=== PATIENT | male | born 1950 | race Caucasian/White ===

== ENCOUNTER 2018-10-16 09:33 | Day surgery (SDC) | payer OTHER, SELFPAY ==
[2018-10-16] MEDS: PROPARACAINE 0.5% OPHTH SOL 2 DROPS EYE-OP (09:54)
[2018-10-16 09:57] VITALS: BP 146/81; PULSE 59; RESP 15; TEMP 36.6; O2SAT 94; BMI 30.7
[2018-10-16] MEDS: CATARACT EYE COMPOUND (10 DROPS/SYRINGE) 3 DROPS EYE-OP (10:09)
--- NOTE | 2018-10-16 11:00 | PM.PREOP ---
Pre-operative Note Interval Note History & Physical reviewed/Exam performed by Physician: No Changes to H&P: No
--- NOTE | 2018-10-16 11:01 | P.OP_ITS ---
Operative Date/Time/Diagnoses Pre-op diagnosis: Nuclear Cataract Left eye Post-op diagnosis: same Procedure & Clinicians Surgeon: Cory Ortiz Anesthesia Type: MAC +/- and Sedation Operative Notes Procedure in detail: Patient brought to the operating suite. Tetracaine drops placed in the left eye. Patient was prepped and draped in sterile manner. Wire lid speculum was placed in the eye. Betadine drops were placed on the eye. This was irrigated. Lidocaine jelly was placed on the eye. A paracentesis port was created with a side-port blade. 0.1 mL 1% preservative free lidocaine was injected into the anterior chamber. The anterior chamber was deepened with viscoelastic. 2.6 mm keratome was used to create a temporal clear corneal incision. Cystotome and Utrata forceps were used to create continuous tear capsulorrhexis. Balanced salt solution was used to hydro dissect the nucleus. The phacoemulsification handpiece was inserted and the nucleus was removed using the stop and chop technique. The irrigation aspiration handpiece was inserted and the remaining cortex was removed. Anterior chamber was deepened with viscoelastic. An Kauffman ZCB00 intraocular lens with a power of 22.0 was injected into the capsular bag. Irrigation aspiration handpiece was inserted and the remaining viscoelastic was removed. Incision was hydrated with balanced salt solution and found to be leak free with pressure with Weck- Stephie sponges. 0.1 mL Vigamox injected anterior chamber. 0.3 mL Kenalog 10 mg was injected subconjunctivally. Lid speculum was removed. The patient left the operating room in excellent condition. Complications: none Condition: stable Disposition: same day surgery
[2018-10-16] MEDS: PHENYLEPHRINE/LIDOCAINE VIAL (OR) 0.2 ML EYE-OP (11:09)
[2018-10-16] MEDS: MOXIFLOXACIN OPHTH DROPS 3 ML BOTTLE 2 DROPS INJ (11:09)
[2018-10-16] MEDS: TRIAMCINOLONE 50 MG/5 ML VIAL INJ (11:09)
[2018-10-16] MEDS: TETRACAINE 0.5% OPHTH DROPS 4 ML 2 DROPS EYE-OP (11:10)
[2018-10-16] MEDS: LIDOCAINE JELLY 2% 5 ML 1 APPLIC TOP (11:10)
[2018-10-16] MEDS: BALANCED SALT IRRIG SOLN NO.2 500 ML, EPINEPHrine 1 MG IRR (11:10)
[2018-10-16] MEDS: CHONDROIDTIN/SOD HYALURONATE 1.05 ML SYRINGE INTRAOCULA (11:10)
[2018-10-16 11:30] VITALS: BP 139/76; PULSE 63; RESP 24; TEMP 36.6; O2SAT 97
== END 2018-10-16 11:41 ==
LOC: OR 09:35
PROVIDERS: PCP Family Medicine; Visit Provider Ophthalmology
DX: H25.12 Age-related nuclear cataract, left eye (principal); I10 Essential (primary) hypertension
CPT/HCPCS: J0171; J2250; J3010; J3301

== ENCOUNTER 2018-10-30 09:16 | Day surgery (SDC) | payer OTHER, SELFPAY ==
[2018-10-30 09:42] VITALS: BP 142/81; PULSE 78; RESP 15; TEMP 36.6; O2SAT 94; BMI 31.6
[2018-10-30] MEDS: PROPARACAINE 0.5% OPHTH SOL 2 DROPS EYE-OP (09:47)
[2018-10-30] MEDS: CATARACT EYE COMPOUND (10 DROPS/SYRINGE) 3 DROPS EYE-OP (09:49)
--- NOTE | 2018-10-30 11:17 | PM.PREOP ---
Pre-operative Note Interval Note History & Physical reviewed/Exam performed by Physician: No Changes to H&P: No
--- NOTE | 2018-10-30 11:18 | P.OP_ITS ---
Operative Date/Time/Diagnoses Pre-op diagnosis: Nuclear cataract right eye Procedure & Clinicians Procedure: Cataract Surgery Same procedure as scheduled: Yes Surgeon: Cory Ortiz Anesthesia Type: MAC +/- and Sedation Operative Notes Procedure in detail: Patient brought to the operating suite. Tetracaine drops placed in the right eye. Patient was prepped and draped in sterile manner. Wire lid speculum was placed in the eye. Betadine drops were placed on the eye. This was irrigated. Lidocaine jelly was placed on the eye. A paracentesis port was created with a side-port blade. 0.1 mL 1% preservative free lidocaine was injected into the anterior chamber. The anterior chamber was deepened with viscoelastic. 2.6 mm keratome was used to create a temporal clear corneal incision. Cystotome and Utrata forceps were used to create continuous tear capsulorrhexis. Balanced salt solution was used to hydro dissect the nucleus. The phacoemulsification handpiece was inserted and the nucleus was removed using the stop and chop technique. The irrigation aspiration handpiece was inserted and the remaining cortex was removed. Anterior chamber was deepened with viscoelastic. An Kauffman ZCB00 intraocular lens with a power of 22.5 was injected into the capsular bag. Irrigation aspiration handpiece was inserted and the remaining viscoelastic was removed. Incision was hydrated with balanced salt solution and found to be leak free with pressure with Weck- Stephie sponges. 0.1 mL Vigamox injected anterior chamber. 0.3 mL Kenalog 10 mg was injected subconjunctivally. Lid speculum was removed. The patient left the operating room in excellent condition. Complications: none Condition: stable Disposition: same day surgery
--- NOTE | 2018-10-30 11:21 | SUR.OPER ---
Supine on eye stretcher, head on extension cradle secured with tape. Arms tucked at sides with blanket. Pillow under knees.
[2018-10-30] MEDS: PHENYLEPHRINE/LIDOCAINE VIAL (OR) 0.2 ML EYE-OP (11:34)
[2018-10-30] MEDS: TRIAMCINOLONE 50 MG/5 ML VIAL INJ (11:35)
[2018-10-30] MEDS: CHONDROIDTIN/SOD HYALURONATE 1.05 ML SYRINGE INTRAOCULA (11:35)
[2018-10-30] MEDS: MOXIFLOXACIN OPHTH DROPS 3 ML BOTTLE 2 DROPS INJ (11:35)
[2018-10-30] MEDS: LIDOCAINE JELLY 2% 5 ML 1 APPLIC TOP (11:36)
[2018-10-30] MEDS: BALANCED SALT IRRIG SOLN NO.2 500 ML, EPINEPHrine 1 MG IRR (11:36)
[2018-10-30] MEDS: TETRACAINE 0.5% OPHTH DROPS 4 ML 2 DROPS EYE-OP (11:37)
[2018-10-30 11:49] VITALS: BP 131/85; PULSE 70; RESP 15; TEMP 36.6; O2SAT 95
== END 2018-10-30 12:02 | disposition home or self-care (01) ==
LOC: OR 09:20
PROVIDERS: PCP Family Medicine; Visit Provider Ophthalmology
DX: H25.11 Age-related nuclear cataract, right eye (principal); I10 Essential (primary) hypertension
CPT/HCPCS: J0171; J2250; J3301

== ENCOUNTER → 2019-10-21 08:47 | Outpatient (CLI) | payer OTHER, SELFPAY ==
--- NOTE | 2019-10-21 | DI.MRI.S_ITS ---
PROCEDURE: MR KNEE RT WO CON INDICATIONS: Pain in right knee TECHNIQUE: Noncontrast sagittal PD fast spin echo and T2 fast spin echo with fat saturation, sagittal 3-D FLASH with fat saturation; coronal T1 spin echo and PD fast spin echo with fat saturation, and axial PD fast spin echo with fat saturation through the knee. COMPARISON: None. FINDINGS: Image quality: Excellent. Menisci: Medial meniscal tear involving the body and posterior horn. Poorly defined circumferential lateral meniscal tear. Cruciate ligaments: Anterior cruciate ligament not well seen and presumed ruptured although this finding technically age-indeterminate could be chronic. Posterior cruciate ligament appears intact. Medial structures: The medial collateral ligament appears intact. Semimembranosus tendon appears intact. Visualized portions of the pes anserinus tendons appear normal. No abnormal bursal fluid. Lateral structures: The lateral collateral ligament intact. Biceps femoris tendon appears intact. Popliteus tendon grossly unremarkable. Iliotibial band appears intact. Anterior structures: Quadriceps tendon intact. Medial and lateral patellofemoral ligaments intact. There is mild distal patellar tendinopathy. Prepatellar and superficial infrapatellar subcutaneous edema/fluid. Bones and cartilage: No focal marrow contusion or discrete low signal fracture line. Within the medial compartment, diffuse surface fraying low-grade partial-thickness loss of femoral and tibial articular cartilage Within the lateral compartment, full-thickness denudation of the tibial and femoral cartilage with underlying subchondral marrow signal change and edema Within the patellofemoral compartment, diffuse surface fraying of the patellar and femoral cartilage Joint space: Large joint effusion. No Mclain's cyst. Prominent debris and/or multiple small loose bodies seen within the suprapatellar recess, image 41/9 for example IMPRESSION: Ruptured anterior cruciate ligament although this finding could be chronic, technically age-indeterminate Severe, poorly defined circumferential lateral meniscal tear Medial meniscal tear involving the body and posterior horn. Severe degenerative joint disease, most pronounced in lateral compartment Large joint effusion, with debris and/or multiple small loose bodies seen within the suprapatellar recess. Theoretically, differential includes reactive synovitis. Dictated by: Radames Hannah M.D. on 10/21/2019 at 10:58 Approved by: Radames Hannah M.D. on 10/21/2019 at 11:06
== END ==
PROVIDERS: PCP Family Medicine; Visit Provider Orthopaedic Surgery
DX: M25.561 Pain in right knee (principal); S83.281A Other tear of lateral meniscus, current injury, right knee, initial encounter; S83.241A Other tear of medial meniscus, current injury, right knee, initial encounter; S83.511A Sprain of anterior cruciate ligament of right knee, initial encounter; M17.11 Unilateral primary osteoarthritis, right knee; M25.461 Effusion, right knee
CPT/HCPCS: 73721

== ENCOUNTER → 2020-08-01 10:08 | Outpatient (CLI) | payer OTHER, SELFPAY ==
[2020-08-01 12:31] LABS: Add Manual Diff / Slide Review NO; Basophils Absolute Auto 0 /uL (0-100); Basophils Percent Auto 0.6 % (0-2); Eosinophils Absolute Auto 100 /uL (0-450); Eosinophils Percent Auto 1.7 % (2-4); Hematocrit 51.2 % (41-53); Lymphocytes Absolute Auto 1500 /uL (1100-4500); Lymphocytes Percent Auto 18.5 % (25-40); Mean Corpuscular HGB Conc 33.3 % (30-36); Mean Corpuscular Hemoglobin 33.7 PG (26-34); Mean Corpuscular Volume 101.3 fL (80-100); Monocytes Absolute Auto 700 /uL (0-900); Monocytes Percent Auto 8.1 % (3-14); Neutrophils Absolute Auto 5900 /uL (1500-7000); Neutrophils Percent Auto 71.1 % (50-75); Platelet Count 167 X10^3/uL (150-400); Red Blood Cell Count 5.06 X10^6/uL (4.5-5.9); Red Cell Distribution Width 12.7 % (11.6-14.8); White Blood Cell Count 8.3 X10^3/uL (4.5-11.0)
[2020-08-03 02:28] LABS: COVID19 Sendout Not Detected (Not Detect)
== END ==
PROVIDERS: Nurse Practitioner; PCP Family Medicine; Referring Provider Orthopaedic Surgery; Visit Provider Orthopaedic Surgery
DX: Z01.812 Encounter for preprocedural laboratory examination (principal); Z11.59 Encounter for screening for other viral diseases
CPT/HCPCS: 36415; 85025; 87635

== ENCOUNTER 2020-08-04 06:07 | Day surgery (SDC) | payer OTHER, SELFPAY ==
[2020-07-30 15:16] VITALS: BMI 32.5
[2020-08-04] VITALS (15 sets, daily range): BP systolic 104–140; BP diastolic 52–75; PULSE 61–78; RESP 12–18; TEMP 36.3–36.9; O2SAT 90–96; BMI 32.1
--- NOTE | 2020-08-04 06:00 | DI.RAD.S_ITS ---
PROCEDURE: XR KNEE RT 1TO2V INDICATIONS: postop TECHNIQUE: 2 view(s) of the knee acquired. COMPARISON: [facility], MR, MR KNEE RT WO CON, 10/21/2019, 9:06. FINDINGS: Bones: Patient is status post knee joint arthroplasty. Hardware components are in expected positions. Visualized bony structures are intact. Soft tissues: Overlying postoperative changes are noted. IMPRESSION: Expected post operative changes. Dictated by: Debora Aguillon M.D. on 08/04/2020 at 11:06 Approved by: Debora Aguillon M.D. on 08/04/2020 at 11:07
[2020-08-04] MEDS: LACTATED RINGERS 1,000 ML 42 ML IV (06:55)
[2020-08-04] MEDS: PREGABALIN 75 MG CAPSULE PO (07:02)
[2020-08-04] MEDS: CELECOXIB 200 MG CAPSULE PO (07:02)
[2020-08-04] MEDS: VANCOMYCIN 1,000 MG/200 ML PIGGYBACK 200 MG IV (07:04)
--- NOTE | 2020-08-04 07:38 | PM.PREOP ---
Pre-operative Note COVID-19 COVID-19 status: Negative Interval Note History & Physical reviewed/Exam performed by Physician: Yes Changes to H&P: No
--- NOTE | 2020-08-04 07:39 | PM.OP.1 ---
Operative Date/Time/Diagnoses Date of procedure: 08/04/20 Time of procedure: 07:58 Pre-op diagnosis: Right knee osteoarthritis Post-op diagnosis: same Procedure & Clinicians Procedure: Right total knee arthroplasty Same procedure as scheduled: Yes Indications: The patient has had progressively worsening right knee pain with radiographic changes consistent with arthritis. Non-operative management has failed and the patient has requested total knee replacement. The risks, benefits and alternatives to surgery were discussed with the patient prior to proceeding. Risks discussed included, but were not limited to, failure to relieve pain, stiffness, infection, nerve damage, deep venous thrombosis, pulmonary embolism, stroke, coma, heart attack, permanent paralysis and , as well as the potential need for eventual revision of the prosthetic. Surgeon: Corazon Louis Industrial Relations Officer: Usman Baker Anesthesia Type: General and Spinal Operative Notes Findings: Severe right knee osteoarthritis, good bone, adequate stability Closure Type: primary Specimen(s): none sent Prosthetic devices, grafts, tissues, transplants, or devices: Journey BCS 2 size 8 femur, size 7 tibia, +9 poly, 38 oval patella Applied: drain(s) Estimated Blood Loss (mL): 250 Blood products transfused: none Tourniquet time (min): 91 Procedure in detail: The patient was seen in the pre-operative area, where the patient identified the right knee as the operative site and this was marked with my initials. The patient received pre-operative antibiotics, and was taken to the operating room and placed on the operative table in the supine position. After satisfactory anesthesia, a manager maritime out was performed. The right leg was encircled with a tourniquet about the proximal thigh, and the leg was prepared from the toes to the tourniquet with ChloroPrep in the usual fashion and draped through sterile drapes. The leg was elevated and exsanguinated with Eschmark bandage and the tourniquet inflated to [250] mmHg pressure. The knee was approached through an approximately 18 cm incision centered over the patella and carried into the knee through a medial parapatellar arthrotomy. A portion of the medial and lateral meniscus was resected. Soft tissue was carefully mobilized around the patella the patella was measured with a caliper. Bone was resected from the patella and the patellar height was reconstituted with up an appropriate sized patellar component. A cover was then placed on the patella. A small amount of additional medial and lateral meniscus was resected. The visionare guide fit well to the distal femur. It looked like an appropriate distal femoral cut and the cut was made without difficulty. The rotation was assessed and the appropriate size femoral guide was placed on the distal femur and finishing cuts were made. There is no evidence of notching. The anterior, posterior and chamfer cuts were then made. The posterior osteophytes and soft tissues were then removed. The posterior capsule was injected with part of a mixture of 60 ml 0.25% Marcaine mixed with 20 ml Exparel for post operative pain control. The remainder of this mixture was injected into the capsule and subcutaneous tissues during cement curing. The tibia was prepared and the visionaire guide fit well to the distal tibia. The rotation was assessed. The patient was placed in extension residual medial and lateral meniscus as well as any residual bone was carefully resected. [No] additional tibia was resected. Hemostasis was achieved especially posteriorly. Additional local was injected into the posterior capsule. The extension gap was assessed and additional releases for gap balancing were performed as necessary. It was checked with the gap waiter/waitress. The femoral component was trial was placed and the notch was finished. Trial tibial and femoral components were then placed and the knee placed through a range of motion. Range of motion was [0-130], with good stability throughout the range. The trials were then removed, and the tibia was finished. The bone was prepared with pulsatile lavage, and dried with a sponge. Cement was applied and the final prosthetics placed. Excess cement was removed during and after cement curing. A brief Betadine soak was performed. After confirming there was no extruded cement posteriorly, the final tibial insert was placed. The knee was copiously irrigated and the tourniquet deflated. Hemostasis was obtained with the Bovie cautery. A drain was placed and brought out superolaterally. The capsule was closed with interrupted Vicryl suture. The subcutaneous layer was closed with barbed sutures, and the skin with a running 3-0 V-Lock suture and Surgical glue. An Aquacel Ag dressing was applied and the patient was taken to recovery having tolerated the procedure well. Complications: none Post-operative Condition: stable Disposition: Acute Care Plan for aftercare: The patient will be maintained on a standard total knee replacement protocol with weight bearing as tolerated. The patient will receive Xarelto and sequential compression devices for DVT prophylaxis. The patient will be discharged home when safe for the home environment.
[2020-08-04] MEDS: CEFAZOLIN 2 GM/100 ML FROZ.PIGGY IV ×3 (07:52→23:55)
[2020-08-04] MEDS: TRANEXAMIC ACID 1,000 MG VIAL 1000 MG INJ (08:15)
--- NOTE | 2020-08-04 08:25 | SUR.OPER ---
Supine on padded OR bed. Pillow under head, arms secured on padded armboards <90 degree abduction. Safety belt across torso. Non-operative leg secured with tape over blanket over lower leg. Operative leg secured in DeMayo/Obie positioner. Foam padded brace at thigh of operative leg.
[2020-08-04] MEDS: BUPIVACAINE 0.25% W/ EPI 30 ML VIAL 60 ML INJ (08:35)
[2020-08-04] MEDS: BUPIVACAINE LIPOSOME 266 MG/20 ML VIAL INJ (08:36)
[2020-08-04] MEDS: SODIUM CHLORIDE IRRIG SOLUTION 250 ML, POVIDONE-IODINE SPONGE STICKS 1 APPLIC IRR (08:38)
--- NOTE | 2020-08-04 10:50 | SUR.PHASEI ---
Stable PACU stay, Dr. Ambrosio in to speak with pt, report to Farhad mabry RN to call me back.
--- NOTE | 2020-08-04 11:15 | SUR.PHASEI ---
Pt brought up to room 211 with belongings and 02 at 2/l., report given pt left in stable condition, Bed down, locked, SCDs on and call teran in hand.
[2020-08-04] MEDS: LACTATED RINGERS 1,000 ML 100 ML IV ×2 (11:31→22:45)
--- NOTE | 2020-08-04 14:17 | PC.ADMIT ---
Addendum entered by Farhad Rodrigues R.N. 08/04/20 14:48: NO VOID SINCE SURGERY. BLADDER SCANNED WITH MAX 26CC'S NOTED. ENCOURAGED PO FLUID INTAKE. PATIENT CONFIRMS UNDERSTANDING. IVF INFUSING PER ORDERS. Original Note: [address] Admission Note: The patient,Roberto Almaguer,70 y/o, was given written information regarding hospital policies, unit procedures and contact persons. Patient's smoking status: Never smoker. Vital Signs - 8 hr 08/04/20 07:11 08/04/20 10:27 08/04/20 10:33 Temperature 97.4 F L 97.3 F L Pulse Rate 78 74 66 Respiratory Rate 18 12 13 Blood Pressure 140/75 119/58 L 106/52 L Pulse Oximetry 93 90 L 92 08/04/20 10:38 08/04/20 10:52 08/04/20 11:04 Temperature 97.3 F L Pulse Rate 68 65 69 Respiratory Rate 15 14 Blood Pressure 113/62 110/61 Pulse Oximetry 93 93 95 08/04/20 11:10 08/04/20 11:40 08/04/20 12:10 Temperature 98.2 F 98.1 F 98.2 F Pulse Rate 63 61 62 Respiratory Rate 16 17 15 Blood Pressure 113/68 113/73 114/63 Pulse Oximetry 94 91 91 08/04/20 13:10 08/04/20 14:05 Temperature 98.3 F 98.4 F Pulse Rate 61 63 Respiratory Rate 16 16 Blood Pressure 104/59 L 104/57 L Pulse Oximetry 92 92 PATIENT ADMITTED TO 211 FROM PACU THIS AFTERNOON, ALERT AND CONVERSANT EVER SINCE. HV UNCLAMPED AT 1210 PER ORDERS, RETURN OF SEROUS/SANG DRAINING. VSS. SAT 89-90% ON 2L/NC INCREASED TO 3L/NC W/ SAT 93-94%. LUNGS CLEAR, CONT PULSE OX IN PLACE, HAD DURAMORPH SPINAL. DENIES PAIN, STILL NUMB FROM BL KNEES TO TOES, OTHERWISE CMS INTACT EXTREMITIES WARM AND WELL PERFUSED. IVF INFUSING PER ORDERS. ATE WELL AT LUNCH, NO N/V. USES CALL LIGHT APPROPRIATELY.
--- NOTE | 2020-08-04 15:05 | PT-IP ANOTE ---
Received PT orders and reviewed chart. Checked on pt twice this PM but he still has very little sensation or voluntary movement to BLE following duramorph spinal anesthesia. PT will follow up morning of 08/05/20.
[2020-08-04] MEDS: ACETAMINOPHEN 325 MG TABLET 650 MG PO ×2 (15:28→21:22)
[2020-08-04] MEDS: FINASTERIDE 5 MG TABLET PO (16:21)
[2020-08-04] MEDS: IBUPROFEN 400 MG TABLET PO ×2 (16:22→21:22)
[2020-08-04] MEDS: ASPIRIN EC 81 MG TABLET PO (21:22)
[2020-08-04] MEDS: DOCUSATE 100 MG CAPSULE PO (21:22)
--- NOTE | 2020-08-04 21:54 | PC.NURSE ---
Bladder scan showed 499ml, patient attempted to void and stated that he still felt numb from surgery and did not feel the urge. 580ml urine emptied from in/out cath
--- NOTE | 2020-08-04 23:35 | PC.NURSE ---
Pt had difficulty voiding. pt still had limited sensation around 1900, but was able to stand up on the side of the bed. but was unable to urinated bladder scan was 473. waited for 1 hr and was able to void 100. then was unable to void again bladder scan 499 around 2145. In and out cath around 2200, 580cc out.
[2020-08-04] MEDS: OXYCODONE IR 5 MG TABLET PO (23:55)
[2020-08-05] MEDS: TERAZOSIN 5 MG CAPSULE 10 MG PO (00:01)
[2020-08-05] MEDS: IBUPROFEN 400 MG TABLET PO ×4 (01:00→13:35)
--- NOTE | 2020-08-05 01:56 | PC.NURSE ---
Addendum entered by Ines Dempsey R.N. 08/05/20 04:08: Pain severity currently 5/10 so medicated with Oxycodone. Has been able to urinate successfully. Original Note: Patient seen and assessed at 0004. Is alert and oriented. Breath sounds CTA with RA sat of 93%. HRR. Denies nausea. BT present and is passing flatus. Had difficulty urinating on previous shift so was straight cathed around 2200 with 580cc urine out; medicated with Terazosin and will continue to monitor. Aquacel dressing covered with nathan wrap to right knee is CDI; hemovac compressed and intact. Able to move himself in bed. Gait not assessed at this time. CMS intact; denies any residual numbness. Does state pain was 7/10 and was medicated with Oxycodone and ice packs applied with pain decreasing to 2/10 at 0100 when scheduled Ibuprofen was given and is now asleep. Wearing bilateral calf SCD's. Fall risk score is moderate and bed alarm is activated for safety.
[2020-08-05 03:23] VITALS: BP 129/73; PULSE 59; RESP 18; TEMP 36.4; O2SAT 94
[2020-08-05] MEDS: OXYCODONE IR 5 MG TABLET PO ×2 (04:05→08:37)
[2020-08-05 06:20] LABS: Hematocrit 44.5 % (41-53)
--- NOTE | 2020-08-05 07:52 | PM.PN.1 ---
Subjective Subjective Date Patient Seen: 08/05/20 Time Patient Seen: 08:06 Interval history: Don's doing well he has minimal pain. He had problems voiding last night but has been able to void up to 100 cc. Exam Vital Signs (past 8 hours): - 08/05/20 03:23 Temperature 97.5 F L Pulse Rate 59 L Respiratory Rate 18 Blood Pressure 129/73 Pulse Oximetry 94 Oxygen Delivery Method Room Air Oxygen Flow Rate 0 Narrative Exam Narrative: Stable to do an active straight leg raise. His calfs are soft bilaterally. He is neurologically intact distally. Dressings intact. Objective Labs Result Diagrams: 08/05/20 05:56 Labs: Laboratory Results - last 24 hr 08/05/20 05:56 Hgb 15.0 Hct 44.5 Assessment & Plan Assessment & Plan narrative: Doing well status post total knee arthroplasty. Continue with physical therapy today. Okay to discharge to home as long as he is ambulating well and able to void spontaneously. Keep previously scheduled follow-up appointments and physical therapy as an outpatient. Quality VTE Deep Vein Thrombosis/Pulmonary Embolism Present on Admission: No
[2020-08-05 08:00] VITALS: BP 95/75; PULSE 63; RESP 16; TEMP 36.6; O2SAT 93
[2020-08-05] MEDS: ASPIRIN EC 81 MG TABLET PO (08:36)
[2020-08-05] MEDS: DOCUSATE 100 MG CAPSULE PO (08:37)
[2020-08-05] MEDS: ACETAMINOPHEN 325 MG TABLET 650 MG PO (08:37)
--- NOTE | 2020-08-05 11:13 | PC.NURSE ---
Addendum entered by Jessy Lopez R.N. 08/05/20 14:07: Patient discharged back to [facility]. Hemovac taken out and iv. Pressure dressings applied to both area's. Out to car with BOOKMOBILE DRIVER and to drive patient home. Original Note: Patient is walking well with physical therapy. He has a hemovac to his r.knee. This will come out before he is discharged back to [facility]. Given 5mg of oxycodone for discomfort and helpful. Dressing with aquacel and nathan wrap. CMS wnl and ppx2. Patient will catch the [facility] and his priority board has been done.
[2020-08-05 11:33] VITALS: BP 129/69; PULSE 76; RESP 16; TEMP 36.2; O2SAT 94
--- NOTE | 2020-08-05 13:27 | PT.IIE ---
Current Diagnoses Bilateral primary osteoarthritis of knee (08/04/20) Unilateral primary osteoarthritis, right knee (08/04/20) Surgery Performed Operation Date: 08/04/20 07:45 Actual Procedures p Total Knee Arthroplasty(Right) - Corazon Louis MD Surgical History (Last Updated 12/10/19 @ 08:32 by Josselyn Beyer RN) History of thoracotomy (Acute) Hx of bilateral cataract extraction (Acute 10/2018) Hx of excision of lamina of cervical vertebra for decompression of spinal cord (Acute) Medical History (Last Updated 12/10/19 @ 08:11 by Josselyn Beyer RN) BCC (basal cell carcinoma) (Acute) BPH (benign prostatic hyperplasia) (Acute) HTN (hypertension) (Acute) LAFB (left anterior fascicular block) (Acute) MRSA (methicillin resistant Staphylococcus aureus) (Acute ~2004) Osteoarthritis (Acute) RBBB (right bundle branch block) (Acute) Physical Therapy Inpatient Evaluation/Re-Eval M1 PT/OT-IP Prior Functional Status Start: 08/04/20 11:56 Freq: NEEDED Status: Active Protocol: Document 08/05/20 11:02 DE (Rec: 08/05/20 11:33 DE [id number]) Medical Review Prior Functional Status Medical History Reviewed Yes Diet/Fluid Consistency Regular Communication WNL. No deficits noted. Able to make needs known. Mobility and Gait IND with all mobility and amb without AD at baseline. Activities of Daily Living and IADL's IND with all ADLs and IADLs at baseline. Social History Household Members spouse Living Arrangements House Number of Floors (Floors) Two Floors Number of Stairs To Enter/Railing? 3 [place] with both railing in the front. 3 [place] with R railing ascending through the side. Pt prefers to use the side entrance. 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 Pt lives with spouse who will be available to assist at home. M2 PT-IP Current Condition Start: 08/04/20 11:56 Freq: NEEDED Status: Active Protocol: Document 08/05/20 11:02 DE (Rec: 08/05/20 11:33 DE [id number]) Physical Therapy Current Condition Current Condition Evaluation Date 08/05/20 Treatment Diagnosis R TKA; Difficulty with walking Onset Date 08/04/20 Weight Bearing Status Weight Bearing Status Weight Bear as Tolerated M3 PT-IP Subjective Start: 08/04/20 11:56 Freq: NEEDED Status: Active Protocol: Document 08/05/20 11:02 DE (Rec: 08/05/20 11:33 DE [id number]) Subjective Physical Therapy Visit Type Type Initial Evaluation Visit Start Time 08:34 Visit Stop Time 09:03 Total Visit Minutes 29 Notes SPT Gaurang led the session under direct supervision of PT Quinton throughout the entire session. Number of SWINE NUTRITIONIST Visits 0 Physical Therapy Visit Comments Patient Comments Pt is agreeable to do PT. Patient Goals To return home. M4 PT-IP Mobility and Gait Start: 08/04/20 11:56 Freq: NEEDED Status: Active Protocol: Document 08/05/20 11:02 DE (Rec: 08/05/20 11:33 DE [id number]) PT-Bed Mobility Assessment Supine to Sit Supine to Sit Contact Guard Assistance, Bedrails Scooting Scooting to Edge of Bed Contact Guard Assistance PT-Transfer Assessment Sit to and From Stand Sit to and from Stand Contact Guard Assistance Equipment Transfer Assistive Device Gait Belt,Front Wheeled Walker Orthotic/Prosthetic Devices or Brace: No Transfers Transfer Destination Chair Transfer Technique Stand Step Pivot Transfer Ability Level of Assist Contact Guard Assistance,Use of Upper Extremities Comments Mobility Comments Pt was lying in bed finishing his breakfast as PT and SPT arrived. Pt completed supine to sit at L EOB with CGA and min use of L bedrail. Pt had difficulty getting out of bed without using the bedrail d/t bed softness. Pt reports he has firmer bed at home and he will be able to get out without bedrail. Pt performed sit to stand with CGA and FWW in staggered stance with more WB through his LLE. Pt then amb ~200 ft total out to the hallway, to the stairs, and back to his room with CGA and FWW. Pt demonstrated step- through gait pattern with flexed trunk and neck. Pt also had decreased R knee extension during amb. Pt performed stair climbing up and down 3 steps x2 with CGA and R railing ascending. Pt was steady throughout amb and stair climbing without any LOB . Pt amb back to his room and sat down on the chair. Call light placed within reach. Gait Assessment Gait Gait Assistance Required: Contact Guard Assist Distance (Feet) 200 Able to Maintain Weight Bearing Status Yes During Gait Assistive Devices Assistive Device Gait Belt,Front Wheeled Walker Orthotic/Prosthetic Devices or Brace: No Gait Deviations General Gait Pattern Flexed Trunk Factors Limiting Gait Function Factors Limiting Gait Function Decreased Strength,Limited Range of Motion,Pain,Poor Balance Comments Gait Comments See mobility comments. Stair Climbing Assessment Evaluation Level of Assist On Stairs Contact Guard Assistance Devices Stair Climbing Assistive Devices Right Railing Technique/Endurance Stair Climbing Direction Ascend and Descend Stair Climbing Technique Step to Step Number of Steps Climbed 3 Query Text: Stair Climbing Set # Repetitions (reps) 2 Comments Stair Climbing Comments See mobility comments. PT-Balance Assessment Sitting Balance and Reactions Static Sitting Balance Ability Normal Dynamic Sitting Balance Ability Normal Standing Balance and Reactions Static Standing Balance Ability Normal Dynamic Standing Balance Ability Good M5 PT-IP Objective Assessments Start: 08/04/20 11:56 Freq: NEEDED Status: Active Protocol: Document 08/05/20 11:02 DE (Rec: 08/05/20 11:33 DE [id number]) Orientation Orientation/Cognition Level of Alertness Alert Orientation Name,Age,Birthday,Month,Date, Year,Day of Week,Place, Situation Language Function Ability No Deficits Noted Safety Awareness Understands Safety Issues Memory Description No Deficits Noted Gross Range of Motion Lower Extremity ROM Assessment Right Impaired Strength Lower Extremity Strength Assessment Right Impaired Coordination Assessment Gross Coordination Gross Coordination WNL Sensation Assessment Sensation Gross Sensation WNL Light Touch Intact Muscle Tone Muscle Tone WNL Yes M6 PT-IP Treatment Start: 08/04/20 11:56 Freq: NEEDED Status: Active Protocol: Document 08/05/20 11:02 DE (Rec: 08/05/20 11:33 DE [id number]) Physical Therapy Treatment Exercises Exercises Ankle Pumps,Gluteal Sets,Quad Sets,Heel Slides Education Education Provided Precautions,Post-Op Packet, Safety M7 PT-IP Assessment and Plan Start: 08/04/20 11:56 Freq: NEEDED Status: Active Protocol: Document 08/05/20 11:02 DE (Rec: 08/05/20 11:33 DE [id number]) PT Summary Assessment and Plan Potential Rehabilitation Potential Excellent Status of Condition at Evaluation Stable Summary Impairments Pain,ROM,Strength,Balance,Bed Mobility,Transfers,Gait, Activity Tolerance Progress Towards Goals Safe For Discharge Assessment Summary This is a low complexity evaluation for 70 yo male, Don , s/p R TKA POD1. PLOF= Pt was IND for all mobility, amb, and ADLs without AD. CLOF= Pt requires CGA and FWW for all mobility, amb, and stair climbing with R railing ascending. Pt is able to amb ~ 200 ft without any LOB or fatigue. Pt is safe to d/c home with FWW and assistance from spouse. Pt will benefit from outpatient PT to improve his knee ROM and strength as well as overall balance. Frequency of Treatment Frequency Of Treatment Discharge Recommendations To Nursing Amount of Assist Needed 1 Person Assist Discharge Recommendations PT Discharge Recommendations Home with Assistance, Outpatient PT Transportation Needs at Discharge Private Vehicle
--- NOTE | 2020-08-05 15:45 | CM.IDA ---
Initial DCP Assessment Note Pt is a 70 yo male, resident of [place], now POD#1 from Rt knee surgery w/ Dr Louis PCP: Emiliano Ferguson Payer: [employer] Reviewed chart, pt discussed in multidisciplinary rounds this morning. Therapy has cleared pt for return home w/family to assist and pt has planned for home, DC order from Ortho has already been initiated this morning. No needs expected from DC planning team although will remain available in case this changes today. MILENA Major
== END 2020-08-05 14:00 | disposition home or self-care (01) ==
LOC: OR 06:10 → AC 06:11
PROVIDERS: PCP Family Medicine; Referring Provider Family Medicine; Visit Provider Orthopaedic Surgery
PROC: 0SRC0JZ Replacement of Right Knee Joint with Synthetic Substitute, Open Approach (ICD-10-PCS; CPT 27447; principal; 2020-08-04 07:45)
DX: M17.11 Unilateral primary osteoarthritis, right knee (principal); I10 Essential (primary) hypertension
CPT/HCPCS: 27447; 36415; 73560; 85014; 85018; 97116; 97161; C1776; C9290; J0690; J1100; J2250; J2274; J2405; J2704; J3010